=== PATIENT | male | born 1950 | race Caucasian/White ===

== ENCOUNTER 2016-05-08 07:59 | Day surgery (SDC) | payer MEDICARE, OTHER ==
--- NOTE | 2016-05-07 17:38 | PCM.ANEPRE ---
Anesthesia Pre-Op Review Reason for Review: CARDIAC HX, HX AAA STENT STOP BANG 07/08 Anesthesia Recommendations: Proceed with Procedure Additional Comments 65 y/o male scheduled for TURP tomorrow. H/O CAD s/p stents to RCA and LAD in . Also s/p endovascular aneurysm repair with stenting and embolization for right common iliac artery aneurism n 2013. Saw seo professional Dr. Roberson on 02/13/16 and was reported optimized. Echo 01/2016 showed EF 60-65%, no significant valvular disease. Negative stress test 07/15. H/o Alcohol dependence, but reportedly improving per PCP. NSQIP cardiac risk 0.5%. Appears optimized. Continue with surgery as planned pending evaluation by DOS anesthesiologist. Trenton Mckeon MD May 07, 2016 17:38
[2016-05-08] VITALS (16 sets, daily range): BP systolic 116–149; BP diastolic 68–83; PULSE 80–101; RESP 14–23; O2SAT 91–97
[~2016-05-08] VITALS: Ht 180.3 cm; Wt 91.2 kg
[~2016-05-08 07:59] MED LIST: ALBU18HF INH; ASPI-973 PO; ATEN25TA PO; ATOR10TA66 PO; CAR8A PO; CHOL10008 PO; FLUT9.9S NS; FUR20 PO; Lactated Ringer's 1,000 ML IV SCH; NITR12SP5 SL; POLY17PO23 PO; POTA-62 PO; TAMS0.4C98 PO; TRAM50TA2 PO
[2016-05-08] MEDS ORDERED: Propofol 10,000 mCg/mL 20 mL Inj ONE (08:00)
[2016-05-08] MEDS ORDERED: fentaNYL-PF 50 mCg/mL 2 mL Inj ONE (08:00)
[2016-05-08] MEDS ORDERED: Ketamine 10 mg/mL 20 mL Inj ONE (08:00)
[2016-05-08] MEDS ORDERED: Ondansetron 2 mg/mL 2 mL Inj ONE (08:00)
[2016-05-08] MEDS ORDERED: Dexamethasone 4 mg/mL Inj ONE (08:00)
[2016-05-08] MEDS ORDERED: Succinylcholine Chloride 20 mg/mL 5 mL Inj ONE (08:00)
[2016-05-08] MEDS ORDERED: Ondansetron 2 mg/mL 2 mL Inj IVPUSH PRN ×2 (08:55→12:15)
[2016-05-08] MEDS ORDERED: Lactated Ringer's 500 ML IV PRN ×2 (08:55)
[2016-05-08] MEDS ORDERED: Labetalol 5 mg/mL 4 mL Inj IV PRN (08:55)
[2016-05-08] MEDS ORDERED: hydrALAZINE 20 mg/mL Inj IVPUSH PRN (08:55)
[2016-05-08] MEDS ORDERED: Lactated Ringer's 1,000 ML IV SCH ×2 (08:55)
[2016-05-08] MEDS ORDERED: MetoCLOpramide 5 mg/mL 2 mL Inj IVPUSH PRN ×2 (08:55→12:15)
[2016-05-08] MEDS ORDERED: Dexamethasone 4 mg/mL Inj IVPUSH PRN (08:55)
[2016-05-08] MEDS ORDERED: fentaNYL-PF 50 mCg/mL 2 mL Inj IVPUSH PRN (08:55)
[2016-05-08] MEDS ORDERED: HYDROmorphone 1 mg/mL Inj IVPUSH PRN (08:55)
[2016-05-08] MEDS ORDERED: EPHEDrine Sulfate 50 mg/mL Inj IVPUSH PRN (08:55)
[2016-05-08] MEDS ORDERED: Phenylephrine 10,000 mCg/mL Inj IVPUSH PRN (08:55)
--- NOTE | 2016-05-08 09:51 | PCM.HPANE ---
Patient Data Date of Service: May 08, 2016 Surgeon Admitting Provider: Attending Provider:Yuliana Baker MD Primary Care Physician:Yajaira Workman MD Other Provider:Cheryl Montalvo Anesthesia Reason for Visit Urinary Retention Ht/WT & BMI Height (Feet): 5 Height (Inches): 11.00 Weight (Kilograms): 89.6 Body Mass Index 27.00 Allergies Coded Allergies: Shellfish (Verified Allergy, Severe, Anaphylaxis (CRAB), 05/07/16) Past Anesthesia History Anesthesia History: Denies:: Abnormal Airway, Anesthesia Reactions, Fam Anesthesia Reaction, Fam Malignant Hypertherm, Malignant Hyperthermia Diabetes History Hx Diabetes?: No MRSA MRSA: No Medications Blood Thinner: Aspirin, Plavix Last Dose Blood Thinner: Apr 30, 2016 Hypertension Medication: Yes (DOXAZOSIN,LASIX) Home Meds Incl Beta Edmond: Yes (Atenolol 25mg) Date Beta Edmond Taken: May 08, 2016 Time Beta Edmond Taken: 0700 Reported Medications Tamsulosin (Flomax)0.4 Mg Capsule0.8 Mg PO DAILY Ref 0 05/07/16 Doxazosin (Cardura)8 Mg Tablet8 Mg PO HS Ref 0 05/07/16 Tramadol 50 Mg Bwqpvx17 Mg PO q6 hours PRN For Pain #90 12/26/15 Fluticasone Propionate (Flonase Allergy Relief)50 Mcg/Actuation Bybee.susp1 Bybee NS BID PRN For Congestion 12/14/15 Cholecalciferol (Vitamin D3) (Vitamin D3)1,000 Unit Tab.chew1,000 Unit PO DAILY 12/14/15 Aspirin 81 Mg Bwlkub71 Mg PO HS Ref 0 12/14/15 Albuterol Sulfate (Ventolin HFA Inhaler)200 Puff/18 Gm Inhaler1 Puffs INH q4-6h PRN For Wheezing #18 12/14/15 Potassium Chloride ER 20 Meq Tablet.er20 Meq PO DAILY #30 12/14/15 Furosemide 20 Mg Tab60 Mg PO BID #90 12/14/15 Polyethylene Glycol 3350 (Gavilax)17 Gm Powd.pack17 Mg PO DAILY PRN For Constipation #527 12/14/15 Atorvastatin Calcium 10 Mg Jchevn78 Mg PO DAILY #90 12/14/15 Nitroglycerin (Nitrolingual)12 Gm Spray0.4 Mg SL DIRECTED PRN For Chest Pain 05/17/14 Atenolol 25 Mg Eaubyr52 Mg PO DAILY #30 TABLET Ref 0 05/17/14 Discontinued Reported Medications Magnesium 200 Mg Byivlq829 Mg PO DAILY 12/26/15 Ubidecarenone (Co Q-10)30 Mg Snqhzqs67 Mg PO DAILY 12/26/15 Clopidogrel 75 Mg Wzbrqy86 Mg PO DAILY #90 12/26/15 [super beta prostate] No Conflict Check1 Tablet PO DAILY 12/26/15 Plant Stanol Fany (Cholest Off Plus)450 Mg Prqrsxt382 Mg PO DAILY 12/26/15 Garlic 1 Each Tablet1 Each PO DAILY 12/26/15 Glucosam & Chondroit-Mv & Min3 (Glucoten Caplet)1 Each Tablet2 Each PO DAILY 30 Days 12/14/15 Multivitamin (Once Daily)1 Each Tablet1 Each PO DAILY 12/14/15 Discontinued Scripts Tamsulosin (Flomax)0.4 Mg Capsule0.4 Mg PO HS #30 CAPSULE Ref 0 Prov:Kirk Cardoso MD 12/28/15 History History of ENT Problems?: Yes HEENT History: Positive for:: Cataracts Sinus Problem (sinus infections) Denies:: Abnormal Airway Dysphagia Hearing Problem Teeth Condition: Tooth Decay Hx of Heart Problems?: Yes Cardiovascular History: Positive for:: Abdominal Aortic Aneurism (S/P INFRARENAL AAA TX W/ STENT) Cardiac Surgery (HEART CATH W/ STENTING RCA/LAD) Chest Pain (UNSTABLE ANGINA) Coronary Artery Disease Edema (PEDAL) Hypertension (HYPERLIPIDEMIA) Peripheral Vascular Valvular Heart Disease (MILD TR) Denies:: AICD Atrial Fibrillation Congestive Heart Failure Heart Murmur (ECHO 01/2016 EF 60-65%) Irregular Heartbeat Pacemaker Thrombophlebitis Hx of Respiratory Problem?: Yes Respiratory History: Positive for:: Asthma Dyspnea (PAGE W/ WHEEZING) Pneumonia (HX OF) Denies:: COPD Chest Surgery Cough Emphysema Hemoptysis Tuberculosis Use of C-PAP Machine (SNORES) Hx Neurologic Problems?: Yes Neurological History: Positive for:: CVA ("mini") Denies:: Dementia Hx of GI Problems?: Yes Gastrointestinal History: Positive for:: Gastroesphageal Reflux Heartburn Liver Disease (HX OF ABNL LFT'S) Denies:: Cirrhosis Diverticulitis Hiatal Hernia Rectal Bleeding Hx of Problems?: No Genitourinary History: Denies:: HX of Hemodialysis Kidney Stones Urinary Tract Infection Male Hx: Positive for:: Prostate Problems (BPH/URINARY RETENTION (PRN ONOFRE)= CURRENT PROBLEM) Denies:: Scrotal Mass Testicular Surgery Skin History: Denies:: History Skin Disorders? (HX OF FACIAL WOUND FROM FALL ) Pressure Ulcers Hx Musculoskeletal Problems?: Yes Musculoskeletal History: Positive for:: Back Injury (HX OF FX L3 S/P RPR) Musculoskeletal Trauma (S/P FINGER RPR AFTER CRUSH INJURY) Osteoarthritis Denies:: Joint Replacement Hx of Psycho/Social Problems?: Yes Psycho Social History: Positive for:: Hx Depression Suicide Attempt (2012) Denies:: Anxiety Bipolar Disorder Hx Surgeries?: Yes (cardiac stents/aoritic stent, neck fx) Hx Any Other Health Problems?: Yes Other History: Positive for:: Hospitalization (URINARY RETENTION) Denies:: Cancer Endocrine Disease Thyroid Disease History Blood Transfusions: Positive for:: Blood Transfusions (in 1971 ) Denies:: Blood Transfuse Reaction Hx Diabetes: No Hx Alcohol Use: Yes (OCCAS)Hx Substance Use: Yes (marijuana) Smoking Status: Current Every Day Smoker Have You Smoked inLast 12 mo: YesApprox How Many Cigarettes/day: 50YR HX Stop/Bang S-Snoring: Do You Snore Loudly: Yes T-Tired: feel tired, fatigued: Yes O-Obsered: Observed not breath: No P-Blood Pressure: treated: Yes B- Body Mass Index > 35 kg/m2: No A- Age over 50: Yes N- Neck Large Circumference: No G- Gender Male: Yes FRANCOIS Total Score: 5 FRANCOIS Risk Assessment: High Risk, =/>3 Yes FRANCOIS Category 3: Yes Risk Assessment Category Category 1A: Patient has history of documented sleep apnea, and HAS NOT received any narcotic, sedative or anesthesia administration during this stay. Category 1B: Patient has history of documented sleep apnea, and HAS received any narcotic , sedative or anesthesia administration during this stay Category 2: Patient has SUSPECTED Obstructive Sleep Apnea, and HAS received any narcotic , sedative or anesthesia administration during this stay. Category 3: Patient has SUSPECTED Obstructive Sleep Apnea and HAS NOT received narcotic, sedative or anesthesia administration during this stay. Category 4: Outpatient in Procedural Areas with known sleep apnea or who screen positive for High Risk via the STOP/BANG questionnaire. Exam Exam Vital Signs Vital Signs Date Time Temp Pulse Resp B/P Pulse Ox O2 Delivery O2 Flow Rate FiO2 05/08/16 08:43 36.3 87 16 142/72 95 Room Air General Appearance: Alert, Oriented X3, Cooperative, No Acute Distress HEENT/AIRWAY: MP 3, MP 4 Lungs: Clear to Auscultation, Normal Air Movement Heart: Exam Unremarkable, Regular Rate/Rhythm, No Murmurs/Rubs/Gallops Plan Impression Patient chart reviewed, patient interviewed and anesthestic plan with risks, benefits, and alternatives discussed, and informed consent obtained. NPO Status: 05/07 AT 2300 ASA Physical Status: ASA3 Severe Disease Anesthetic Support Modalities: Stewart Scope Anesthetic Plan: GA Bene/Risks/Altern/Consents: Yes HP Complete Prior to Induction: Yes Other Will check INR prior to operation because of alcohol dependence. Michele Artis MD May 08, 2016 09:51
[2016-05-08 10:18] LABS: INR 1.01 ratio
[2016-05-08] MEDS ORDERED: Lactated Ringer's 1,000 ML IV ONE (10:24)
[2016-05-08] MEDS: CeFAZolin Inj 2 GM in IV Premix 1 EACH IV ONE ×3 (10:31→10:42)
[2016-05-08] MEDS: Gentamicin Inj 120 MG in Dextrose 5% 100 ML IV ONE ×2 (10:31→10:35)
[2016-05-08] MEDS ORDERED: Belladonna Alk-Opium 60 mg Rectal Suppository RECTAL ONE (10:43)
[2016-05-08] MEDS: Lactated Ringer's 1,000 ML IV SCH ×2 (12:13→20:05)
[2016-05-08] MEDS ORDERED: Belladonna Alk-Opium 60 mg Rectal Suppository RECTAL PRN (12:15)
[2016-05-08] MEDS ORDERED: oxyCODONE-Acetamin 5-325 mg Tablet PO PRN (12:15)
[2016-05-08] MEDS ORDERED: diphenhydrAMINE 25 mg Capsule PO PRN (12:15)
[2016-05-08] MEDS ORDERED: Polyethylene Glycol (PEG) 17 Gm Powder PO PRN ×2 (12:15→14:35)
--- NOTE | 2016-05-08 12:46 | PCM.ANEP2 ---
Post Anesthesia Evaluation ASA/CMS Post Anesthesia VS in Patient's Normal Range?: Yes Resp Stable; Airway Patent?: Yes CV Function & Hydration Stable: Yes Mental Status Recovered?: Yes Pain control Satisfactory?: Yes N/V Control Satisfactory?: Yes Michele Artis MD May 08, 2016 12:46
--- NOTE | 2016-05-08 12:46 | PCM.ANEP1 ---
Post Anesthesia Phase 1 PACU Phase 1 Assessment Date of Service: May 08, 2016 Vital Signs Vital Signs Date Time Temp Pulse Resp B/P Pulse Ox O2 Delivery O2 Flow Rate FiO2 05/08/16 12:25 92 19 140/70 97 Simple Mask 8 05/08/16 12:20 92 23 149/79 95 Simple Mask 8 05/08/16 12:15 96 20 142/72 95 Simple Mask 8 05/08/16 12:13 36.5 96 19 137/73 94 Simple Mask 8 05/08/16 08:43 36.3 87 16 142/72 95 Room Air Anesthetic Administered: GA Level of Alertness: Sleepy, easy to arouse Pain: No Nausea or Vomiting: No Oxygen Delivery: Room Air Lungs: Clear to Auscultation, Normal Air Movement Michele Artis MD May 08, 2016 12:46
[2016-05-08] MEDS ORDERED: Fluticasone 0.05% 15 Spray/2 Gm 16 Gm Nasal Spray NASAL PRN (14:35)
[2016-05-08] MEDS ORDERED: Albuterol 2.5 mg/3 mL Inhalation Solution NEB PRN (14:35)
--- NOTE | 2016-05-08 15:02 | OP ---
[address] [address] OPERATIVE REPORT PATIENT: JG CONTRERAS : 1950 MR#: [id number] ADMIT: 05/08/2016 JOB ID: [id number] DATE OF SURGERY: 05/08/2016 SURGEON: Yuliana Baker MD PREOPERATIVE DIAGNOSIS(ES): 1. Benign prostatic hypertrophy. 2. Urinary retention. POSTOPERATIVE DIAGNOSIS(ES): PROCEDURE: Transurethral resection of prostate. ANESTHESIA: General anesthetic, Michele Artis MD. DESCRIPTION OF PROCEDURE: Under general anesthetic, the patient was placed in lithotomy position and the genitalia prepped and draped in a sterile manner. The urethra was dilated to 28-Romanian with Samson sounds. A 26-Romanian Dasilva type resectoscope was introduced into the bladder. The bladder was trabeculated and diffusely erythematous from prolonged catheter contact. The prostatic urethra was resected circumferentially to the capsule. After removal of chips and achieving hemostasis, a 24-Romanian 3-way Sexton catheter was inserted. The patient tolerated the procedure well. Estimated blood loss 150 mL. The patient left the operating room in good condition with clear saline irrigation.
--- NOTE | 2016-05-08 15:14 | NUR ---
Post op Pt arrived to floor @ 1350. C/o 06/10 burning pain to his penis; pts states no abd pain at this time. [address] way rodriguez draining clear corey red uop. Arrived on 4 L O2 Oxymask sats at 97%; Pt states he doesn't want to wear the O2. trialed him off of O2 and sats at 92%. 2l nc O2 back on pt. Encouraged to cough and deep breath. See post op assessment for more details. Care conts
[2016-05-09 00:09] VITALS: BP 119/70; PULSE 80; RESP 17; O2SAT 95
[2016-05-09] MEDS: Lactated Ringer's 1,000 ML IV SCH (05:18)
[2016-05-09 06:15] VITALS: BP 122/75; PULSE 53; RESP 17; O2SAT 96
--- NOTE | 2016-05-09 06:23 | NUR ---
Activity/ Rodriguez Patient able to ambulate to restroom with standby assist. Denies CP, SOB, and abdominal pain at this time. No requests for pain medication. Three way rodriguez draining dark pink with occasional clots, thus slight increase in irrigation flow.
[2016-05-09 07:29] LABS: Mean Corpuscular Hemoglobin 33.3 pg (27.0-35.0); Mean Corpuscular Volume 99.4 fL (81-100)
[2016-05-09] MEDS ORDERED: Potassium Chloride 20 mEq SR Tablet PO SCH (08:00)
[2016-05-09 09:17] VITALS: BP 106/56; PULSE 70; RESP 20
--- NOTE | 2016-05-09 15:23 | NUR ---
D/C'd Pt D/C'd home via wheelchair with friend. Hard copies of Rx with pt, rodriguez catheter remained in place upon d/c. Pt equipped with leg bag and large gravity bag and instructed on care of rodriguez, pt signed and stated understanding of rodriguez and D/C instructions/follow up. IV D/C'd intact, all pt belongings went with pt.
--- NOTE | 2016-05-13 15:12 | PATH ---
SURGICAL PATHOLOGY Attending Physician:Yuliana Baker MD () CASE STATUS: Signed Out PATIENT NAME: JG CONTRERAS PID: [id number] : 1950 DATE COLLECTED:05/08/2016 20:54 SPECIMEN: Prostate, Chips CLINICAL HISTORY: URINARY RETENTION 1). PROSTATE CHIPS FINAL DIAGNOSIS: 1.PROSTATE CHIPS (45.5 GRAMS): FIBROGLANDULAR HYPERPLASIA. PATCHY CHRONIC ACTIVE INFLAMMATION. NO EVIDENCE OF MALIGNANCY. ICD10 CODE N40.1 GROSS DESCRIPTION: The specimen is received in formalin, labeled with the patient's name, sublabeled as prostate chips, and consists of multiple fragments of hodgson-pink rubbery prostatic tissue (45.5 g, 8.5 x 8.5 x 2.5 cm in aggregate). Section code: (A-J) prostatic tissue, product support representative. 05/10/16 MICRO DESCRIPTION: See diagnosis. ICD-9 CODES: CPT CODES: 1: 64800 Electronically Signed Out Dylon Alvarenga MD [facility] [address], [place] [address] Technical component performed at [facility], [address] [place] [address] Ave[address], [place], [address]
== END 2016-05-09 11:30 | disposition home or self-care (01) ==
LOC: SAS 07:59 → OSC 13:59 → SAS 05-09 11:30
PROVIDERS: ATTEND Urology
DX: N40.1 Benign prostatic hyperplasia with lower urinary tract symptoms (principal); R33.9 Retention of urine, unspecified; I25.10 Atherosclerotic heart disease of native coronary artery without angina pectoris; I10 Essential (primary) hypertension; R94.5 Abnormal results of liver function studies; K21.9 Gastro-esophageal reflux disease without esophagitis; E78.5 Hyperlipidemia, unspecified; J45.909 Unspecified asthma, uncomplicated; I71.4 Abdominal aortic aneurysm, without rupture; F17.210 Nicotine dependence, cigarettes, uncomplicated; F32.9 Major depressive disorder, single episode, unspecified; F10.20 Alcohol dependence, uncomplicated; Z79.82 Long term (current) use of aspirin; Z79.02 Long term (current) use of antithrombotics/antiplatelets; Z95.5 Presence of coronary angioplasty implant and graft
CPT/HCPCS: 36415; 52601; 80048; 85027; 85610; J0330; J0690; J1100; J1170; J1580; J2405; J3010; J7120